=== PATIENT | male | born 1990 | race African-American/Black ===

== ENCOUNTER 2021-04-22 15:09 | Emergency (ER) | payer OTHER, SELFPAY ==
[2021-04-22 15:23] VITALS: BP 145/91; PULSE 61; RESP 14; TEMP 37.5; O2SAT 100; BMI 29.7
[2021-04-22] MEDS: IBUPROFEN 400 MG TABLET 800 MG PO (17:51)
[2021-04-22] MEDS: ACETAMINOPHEN 325 MG TABLET 975 MG PO (17:52)
== END 2021-04-22 18:16 | disposition left against medical advice (07) ==
PROVIDERS: Emergency Provider Emergency Medicine
DX: S39.012A Strain of muscle, fascia and tendon of lower back, initial encounter (principal); V89.2XXA Person injured in unspecified motor-vehicle accident, traffic, initial encounter; Z53.21 Procedure and treatment not carried out due to patient leaving prior to being seen by health care provider
CPT/HCPCS: 99282; 99283

== ENCOUNTER 2021-04-22 21:05 | Emergency (ER) | payer OTHER, SELFPAY ==
[2021-04-22 21:12] VITALS: BP 142/91; PULSE 70; RESP 15; TEMP 37.3; O2SAT 99; BMI 29.7
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
[2021-04-22] MEDS: CYCLOBENZAPRINE 10 MG PREPACK 1 BOTTLE MISC (23:39)
[2021-04-22] MEDS: HYDROCODONE/ACET 5/325 PREPACK 1 BOTTLE MISC (23:39)
[2021-04-22 23:45] VITALS: BP 137/83; PULSE 72; RESP 15; O2SAT 99
== END 2021-04-22 23:46 | disposition home or self-care (01) ==
PROVIDERS: Emergency Provider Emergency Medicine
DX: S39.012A Strain of muscle, fascia and tendon of lower back, initial encounter (principal); V89.2XXA Person injured in unspecified motor-vehicle accident, traffic, initial encounter
CPT/HCPCS: 99281